=== PATIENT | female | born 1985 | race American Indian/Alaskan Native ===

== ENCOUNTER 2017-04-16 17:13 | Emergency (ER) | payer MEDICAID ==
[2017-04-16 18:11] LABS: Basophils % (Auto) 0.5 % (0.0-1.8); Eosinophils % (Auto) 1.6 % (0.0-4.3); Hematocrit 35.1 % (30.3-42.9); Hemoglobin 11.6 gm/dl (10.1-14.3); Mean Corpuscular HGB Conc 33 % (30-34); Mean Corpuscular Hemoglobin 30 pg (28-32); Mean Corpuscular Volume 89 fl (79-97); Platelet Count 153 K/mm3 (140-440); Red Blood Count 3.93 M/mm3 (3.65-5.03); Red Cell Distribution Width 14.8 % (13.2-15.2)
[2017-04-16 18:28] LABS: Anion Gap 16 mmol/L; Blood Urea Nitrogen 9 mg/dL (7-17); Calcium 8.4 mg/dL (8.4-10.2); Carbon Dioxide 21 mmol/L (22-30); Chloride 101.2 mmol/L (98-107); Glucose 82 mg/dL (65-100); Potassium 3.5 mmol/L (3.6-5.0); Sodium 135 mmol/L (137-145)
--- NOTE | 2017-04-16 18:43 | Emergency Department Report ---
Chief Complaint: Nausea/Vomiting/Diarrhea Stated Complaint: NAUSEA AND VOMITING - HPI History of Present Illness: 31-year-old female 9 weeks by LMP presents with complaint of lower abdominal pain and nausea - ROS Review of Systems: Lower abdominal pain and nausea 2 days - Exam Vital Signs: Vital Signs 04/16/17 17:29 Temperature 98.8 F Pulse Rate 77 Respiratory 18 Rate Blood Pressure 110/51 O2 Sat by Pulse 100 Oximetry Physical Exam: Positive suprapubic pain, patient awake alert and oriented 3, speaking in full sentences MSE screening note: Focused history and physical exam performed. Due to findings the following was ordered: Screening Assessment/Plan/Differential Dx: Abdominal pain during , possible hyperemesis gravidarum 1- This initial assessment/diagnostic orders/clinical plan/ treatment(s) is/are subject to change based on pt's health status, clinical progression and re- assessment by fellow clinical providers in the ED. Further treatment and workup at subsequent clinical provers discretion. Patient/guardians urged not to elope from ED as their condition may be serious if not clinically assessed and managed. 2-labs, UA, ultrasound ED Medical Decision Making - Lab Data Result diagrams: 04/16/17 17:46 04/16/17 17:47 ED Disposition for MSE Condition: Stable Referrals: PRIMARY CARE, [Primary Care Provider] - 3-5 Days
[2017-04-16 19:50] LABS: Bacteria,Urine 1+ /HPF (Negative); Bilirubin,Urine NEG (Negative); Blood,Urine NEG (Negative); Ketones,Urine NEG (Negative); Leukocyte Esterase,Urine NEG (Negative); Mucus,Urine FEW /HPF; Nitrite,Urine NEG (Negative); Urobilinogen,Urine < 2.0 mg/dL (<2.0)
--- NOTE | 2017-04-16 20:08 | Ultrasound Report ---
FINAL REPORT EXAM: US OB \T\lt; = 14 WEEKS FETUS HISTORY: 9 weeks preg w/ abd pain . Hyperemesis with pelvic pain and cramping. Beta serum HCG quantitation 34,854. LMP 02/07/2017 corresponds to an estimated age is 9 weeks 5 days and EDC 11/14/2017 TECHNIQUE: Ultrasound of the pelvis using transabdominal and transvaginal imaging PRIORS: None. FINDINGS: Uterus: Uterus is enlarged in size and normal and homogeneous in echogenicity without focal fibroid formation. The uterus measures 10.3 x 7.6 x 8.3 cm in size. There is a single early viable intrauterine gestation noted. Intrauterine gestation: There is a single intrauterine gestation identified with both a pole and yolk sac. heart rate is monitored at 182 BPM using M-mode doppler. [place]-rump length measurement of 3.7 cm corresponds to estimated age 10 weeks 4 days with EDC 11/08/2017. Ovaries: Both ovaries appear normal in size and echogenicity with normal blood flow bilaterally. The right ovary measures 2.8 x 1.5 x 2.3 cm on the left ovary measures 2.2 x 1.4 x 1.3 cm in size. Other: There is no evidence for solid adnexal mass is seen. There is no free fluid in the cul-de-sac. IMPRESSION: Single intrauterine viable with an approximate age of 10 weeks 4 days.
--- NOTE | 2017-04-16 20:10 | Ultrasound Report ---
FINAL REPORT EXAM: US OB TRANSVAGINAL HISTORY: 9 weeks preg w/ abd pain . Hyperemesis with pelvic pain and cramping. Beta serum HCG quantitation 34,854. LMP 02/07/2017 corresponds to an estimated age is 9 weeks 5 days and EDC 11/14/2017 TECHNIQUE: Ultrasound of the pelvis using transabdominal and transvaginal imaging PRIORS: None. FINDINGS: Uterus: Uterus is enlarged in size and normal and homogeneous in echogenicity without focal fibroid formation. The uterus measures 10.3 x 7.6 x 8.3 cm in size. There is a single early viable intrauterine gestation noted. Intrauterine gestation: There is a single intrauterine gestation identified with both a pole and yolk sac. heart rate is monitored at 182 BPM using M-mode doppler. [place]-rump length measurement of 3.7 cm corresponds to estimated age 10 weeks 4 days with EDC 11/08/2017. Ovaries: Both ovaries appear normal in size and echogenicity with normal blood flow bilaterally. The right ovary measures 2.8 x 1.5 x 2.3 cm on the left ovary measures 2.2 x 1.4 x 1.3 cm in size. Other: There is no evidence for solid adnexal mass is seen. There is no free fluid in the cul-de-sac. IMPRESSION: Single intrauterine viable with an approximate age of 10 weeks 4 days.
[2017-04-16] MEDS ORDERED: REGLAN IV ONE (21:31)
[2017-04-16] MEDS ORDERED: LACTATED RINGERS 1,000 ML IV ONE (21:31)
--- NOTE | 2017-04-16 21:39 | Emergency Department Report ---
ED N/V/D HPI - General Chief complaint: Nausea/Vomiting/Diarrhea Stated complaint: NAUSEA AND VOMITING Time Seen by Provider: 04/16/17 21:26 Source: patient Mode of arrival: Ambulatory Limitations: No Limitations - History of Present Illness Initial comments: This is a 31-year-old female nontoxic, well nourished in appearance, no acute signs of distress presents to the ED complaining of nausea vomiting 2 days. Patient states she is currently 9 weeks and is diagnosed by her VOCATIONAL AIDE. They stated on 04/05 2014 patient had a normal physical exam her OB/ [employer] and was prescribed a nausea medication but patient stated she did not go fill it. Patient denies any dizziness, headache, chest pain, shortness of breath, fever, chills, abdominal pain, pelvic pain, dysuria, polyuria, frequency , hematuria, vaginal bleeding. They stated she has allergies to penicillin. Denies Past medical history. MD complaint: nausea, vomiting -: Gradual, days(s) (2) Description of Vomiting: food contents Associated Abdominal Pain: No Radiation: none Associated Symptoms: denies other symptoms. denies: myalgias, chest pain, cough , diaphoresis, fever/chills, headaches, loss of appetite, malaise, nausea/ vomiting, rash, dysuria, shortness of breath, syncope, weakness - Related Data Previous Rx's Medication Instructions Recorded Last Taken Type Doxylamine/Pyridoxine HCl 1 each PO DAILY #60 tablet. 04/16/17 Unknown Rx [Radha Garcia 10-10 mg Tablet] Allergies Allergy/AdvReac Type Severity Reaction Status Date / Time Penicillins Allergy Nausea Verified 04/16/17 17:29 ED Review of Systems ROS: Stated complaint: NAUSEA AND VOMITING Other details as noted in HPI Constitutional: denies: chills, fever Eyes: denies: eye pain, eye discharge, vision change ENT: denies: ear pain, throat pain Respiratory: denies: cough, shortness of breath, wheezing Cardiovascular: denies: chest pain, palpitations Endocrine: no symptoms reported Gastrointestinal: denies: abdominal pain, nausea, diarrhea Genitourinary: denies: urgency, dysuria, discharge Musculoskeletal: denies: back pain, joint swelling, arthralgia Skin: denies: rash, lesions Neurological: denies: headache, weakness, paresthesias Psychiatric: denies: anxiety, depression Hematological/Lymphatic: denies: easy bleeding, easy bruising ED Past Medical Hx - Past Medical History Previous Medical History?: No - Surgical History Past Surgical History?: No - Social History Smoking Status: Never Smoker Substance Use Type: None - Medications Home Medications: Home Medications Medication Instructions Recorded Confirmed Last Taken Type Doxylamine/Pyridoxine HCl 1 each PO DAILY #60 tablet. 04/16/17 Unknown Rx [Radha Garcia 10-10 mg Tablet] ED Physical Exam - General Limitations: No Limitations General appearance: alert, in no apparent distress - Head Head exam: Present: atraumatic, normocephalic, normal inspection - Eye Eye exam: Present: normal appearance, PERRL, EOMI. Absent: scleral icterus, conjunctival injection, nystagmus, periorbital swelling, periorbital tenderness Pupils: Present: normal accommodation - ENT ENT exam: Present: normal exam, normal orophraynx, mucous membranes moist, TM's normal bilaterally, normal external ear exam - Neck Neck exam: Present: normal inspection, full ROM. Absent: tenderness, meningismus, lymphadenopathy, thyromegaly - Respiratory Respiratory exam: Present: normal lung sounds bilaterally. Absent: respiratory distress, wheezes, rales, rhonchi, stridor, chest wall tenderness, accessory muscle use, decreased breath sounds, prolonged expiratory - Cardiovascular Cardiovascular Exam: Present: regular rate, normal rhythm, normal heart sounds. Absent: bradycardia, tachycardia, irregular rhythm, systolic murmur, diastolic murmur, rubs, gallop - GI/Abdominal GI/Abdominal exam: Present: soft, normal bowel sounds. Absent: distended, tenderness, guarding, rebound, rigid, diminished bowel sounds - Rectal Rectal exam: Present: deferred - Extremities Exam Extremities exam: Present: normal inspection, full ROM, normal capillary refill. Absent: tenderness, pedal edema, joint swelling, calf tenderness - Back Exam Back exam: Present: normal inspection, full ROM. Absent: tenderness, CVA tenderness (R), CVA tenderness (L), muscle spasm, paraspinal tenderness, vertebral tenderness, rash noted - Neurological Exam Neurological exam: Present: alert, oriented X3, CN II-XII intact, normal gait, reflexes normal - Psychiatric Psychiatric exam: Present: normal affect, normal mood - Skin Skin exam: Present: warm, dry, intact, normal color. Absent: rash ED Course Vital Signs 04/16/17 17:29 Temperature 98.8 F Pulse Rate 77 Respiratory 18 Rate Blood Pressure 110/51 O2 Sat by Pulse 100 Oximetry - Reevaluation(s) Reevaluation #1: 04/16/17 21:38 Patient is speaking in full sentences with no signs of distress noted. ED Medical Decision Making - Lab Data Result diagrams: 04/16/17 17:46 04/16/17 17:47 - Medical Decision Making This is a 31-year-old female that presents with nausea vomiting 2 days. CBC, BMP, UA has been obtained. There is slight dehydration upon laboratory exam. Patient received lactated Ringer's as well as Reglan in the ED and patient stated nausea and vomiting has subsided. The by mouth challenge has been performed and patient tolerated well with no signs of any nausea vomiting. Patient was instructed to follow-up with her VOCATIONAL AIDE in 3-5 days or if symptoms worsen or continue return to emergency room as soon as possible. Patient received doxylamine and pyridoxinem at discharge. Patient also instructed to increase hydration with electrolytes. Transvaginal and OB ultrasounds did obtain an dictated by radiologist with impression of single intrauterine viable with an approximate age of 10 weeks 4 days. Critical care attestation.: If time is entered above; I have spent that time in minutes in the direct care of this critically ill patient, excluding procedure time. ED Disposition Clinical Impression: Nausea/vomiting in Qualifiers: Weeks of gestation: 11 weeks Qualified Code(s): Z3A.11 - 11 weeks gestation of Disposition: DC-01 TO HOME OR SELFCARE Is pt being admited?: No Does the pt Need Aspirin: No Condition: Stable Instructions: Acute Nausea and Vomiting (ED), Electrolyte Supplement (By mouth) , (ED) Additional Instructions: Follow-up with the VOCATIONAL AIDE in 3-5 days or if symptoms worsen and continue return to emergency room as soon as possible. Keep Diclectin as directed: Initial: Two tablets at bedtime on day 1 and 2; if symptoms persist, take 1 tablet in morning and 2 tablets at bedtime on day 3; if symptoms persist, may increase to 1 tablet in morning, 1 tablet mid-afternoon , and 2 tablets at bedtime on day 4 (maximum: doxylamine 40 mg/pyridoxine 40 mg (4 tablets) per day). Prescriptions: Doxylamine/Pyridoxine HCl [Radha Garcia 10-10 mg Tablet] 1 each PO DAILY #60 tablet. Referrals: PRIMARY CARE, [Primary Care Provider] - 3-5 Days FARHAN SRINIVASAN MD [Staff Physician] - 3-5 Days [facility] [Outside] - 3-5 Days [facility] [Outside] - 3-5 Days Forms: Work/School Release Form(ED)
[2017-04-17 00:03] VITALS: BP 98/55
== END 2017-04-17 00:34 | disposition home or self-care (01) ==
LOC: ED 17:13
DX: O21.9 Vomiting of pregnancy, unspecified (principal); Z3A.11 11 weeks gestation of pregnancy; Z88.0 Allergy status to penicillin
CPT/HCPCS: 36415; 76801; 76817; 80048; 81001; 84702; 85025; 87086; 96361; 96374; 99284; J2765; J7120

== ENCOUNTER 2017-10-25 08:36 | Outpatient (CLI) | payer OTHER ==
[2017-10-25 09:12] VITALS: BP 109/53
== END 2017-10-25 09:47 | disposition home or self-care (01) ==
LOC: TRG 08:36
PROVIDERS: ATTEND Obstetrics & Gynecology
DX: O47.1 False labor at or after 37 completed weeks of gestation (principal); Z3A.37 37 weeks gestation of pregnancy
CPT/HCPCS: 59025

== ENCOUNTER 2017-11-06 03:17 | Inpatient (IN) | payer OTHER ==
[2017-11-06] MEDS ORDERED: SUBLIMAZE IV PRN (03:31)
[2017-11-06] MEDS ORDERED: NARCAN 0.4 MG/1 ML IV PRN (03:31)
[2017-11-06] MEDS ORDERED: ePHEDrine SULFATE IV PRN (03:31)
[2017-11-06] MEDS ORDERED: XYLOCAINE 2% INFILTRATI ONE (03:31)
[2017-11-06] MEDS ORDERED: STADOL IV PRN (03:31)
[2017-11-06] MEDS ORDERED: BRETHINE SUB-Q PRN (03:31)
[2017-11-06] MEDS ORDERED: BRETHINE IVP PRN (03:31)
[2017-11-06] MEDS ORDERED: MINERAL OIL ONE (03:41)
[2017-11-06] MEDS ORDERED: PITOCin/NS 30 UNIT/500ML 30 UNITS/500 ML BAG IV SCH (04:00)
[2017-11-06] MEDS ORDERED: LACTATED RINGERS 1,000 ML IV SCH (04:00)
[2017-11-06] MEDS ORDERED: POLYCILLIN/NS 2 GM/100 ML 2 GM/100 ML BAG IV SCH (04:00)
[2017-11-06] MEDS ORDERED: PITOCin/NS 20 UNIT/1000ML DRIP 20 UNITS/1,000 ML BAG IV SCH (04:00)
[2017-11-06] MEDS ORDERED: TUCKS PAD TP PRN (04:11)
[2017-11-06] MEDS ORDERED: BENADRYL PO PRN (04:11)
--- NOTE | 2017-11-06 04:18 | History and Physical Report ---
History of Present Illness Date of examination: 11/06/17 Date of admission: 11/06/17 03:27 Chief complaint: Intense Labor Pains History of present illness: Early entry to care; 2nd trimester complicated Constipation and Heartburn. Third trimester complicated by size greater than dates. Past History Past Medical History: asthma Past Surgical History: other (arm and leg Sx (1999)) PROCUREMENT PROFESSIONAL History: herpes Family/Genetic History: diabetes, cancer Social history: no significant social history, - Obstetrical History Expected Date of Delivery: 11/14/17 Actual Gestation: 38 Week(s) 6 Day(s) : 5 Para: 1 Hx # Term Pregnancies: 1 Spontaneous Abortions: 1 Induced : 2 Number of Living Children: 1 #1 Gender: Male year: 15 Birthweight: 3.26 kg Method of Delivery: Vaginal Gestational age at delivery: 40 Complications: none Medications and Allergies Allergies Allergy/AdvReac Type Severity Reaction Status Date / Time Penicillins Allergy Nausea Verified 04/16/17 17:29 Home Medications Medication Instructions Recorded Confirmed Last Taken Type Doxylamine Succinate/Vit B6 1 each PO DAILY #60 tablet. 04/16/17 Unknown Rx [Radha Garcia 10-10 mg Tablet] Active Meds: Active Medications Acetaminophen/Hydrocodone Bitart ([place] 5/325) 2 each PO Q6H PRN PRN Reason: Pain, Moderate (4-6) Butorphanol Tartrate (Stadol) 2 mg IV Q2H PRN PRN Reason: Pain , Severe (7-10) Diphenhydramine HCl (Benadryl) 25 mg PO Q6H PRN PRN Reason: Itching Ephedrine Sulfate (Ephedrine Sulfate) 10 mg IV Q2M PRN PRN Reason: Hypotension Fentanyl (Sublimaze) 100 mcg IV Q2H PRN PRN Reason: Labor Pain Lactated Ringer's (Lactated Ringers) 1,000 mls @ 125 mls/hr IV DIRECT LAYLA Oxytocin/Sodium Chloride (Pitocin/Ns 20 Unit/1000ml Drip) 20 units in 1,000 mls @ 125 mls/hr IV DIRECT LAYLA Oxytocin/Sodium Chloride (Pitocin/Ns 30 Unit/500ml) 30 units in 500 mls @ 2 mls /hr IV TITR LAYLA; Protocol Ampicillin Sodium (Polycillin/Ns 2 Gm/100 Ml) 2 gm in 100 mls @ 100 mls/hr IV ONCE LAYLA; Protocol Ampicillin Sodium (Ampicillin/Ns 1 Gm/50 Ml) 1 gm in 50 mls @ 100 mls/hr IV Q4H LAYLA; Protocol Ibuprofen (Motrin) 600 mg PO Q6H LAYLA Mineral Oil (Mineral Oil) 30 ml PO QHS PRN PRN Reason: Constipation Multi-Ingredient Ointment (Lansinoh) 1 applic TP PRN PRN PRN Reason: Sore Nipples Multivitamins/Iron/Calcium ( Vitamin) 1 each PO QDAY LAYLA Naloxone HCl (Narcan 0.4 Mg/1 Ml) 0.1 mg IV Q2MIN PRN PRN Reason: Res Rate </= 8 or 02 SAT < 92% Sodium Chloride (Sodium Chloride Flush Syringe 10 Ml) 10 ml IV PRN NR Terbutaline Sulfate (Brethine) 0.25 mg SUB-Q ONCE PRN PRN Reason: Hyperstimulation/Hypertonicity Terbutaline Sulfate (Brethine) 0.25 mg IVP ONCE PRN PRN Reason: Hyperstimulation/Hypertonicity [place]/Glycerin (Tucks Pad) 1 each TP PRN PRN PRN Reason: Hemorrhoid/cleansing/soothing Review of Systems All systems: negative - Physical Exam Breasts: Positive: normal Cardiovascular: Regular rate Lungs: Positive: Clear to auscultation, Normal air movement Abdomen: Positive: normal appearance, normal bowel sounds Genitourinary (Female): Positive: normal external genitalia, normal perenium Vagina: Positive: normal moisture Uterus: Positive: enlarged Anus/Rectum: Positive: normal perianal skin Extremities: Positive: normal - Obstetrical FHR: category 1 Uterine Contraction Monitor Mode: External Cervical Dilatation: 10 Cervical Effacement Percentage: 100 station: +2 Uterine Contraction Pattern: Regular Uterine Tone Measurement Phase: Resting Uterine Contraction Intensity: Strong/Firm Results All other labs normal. Assessment and Plan A: IUP @ 38 6/7 Weeks Category I Tracing Active Labor GBS Positive P: Admit to L&D per Routine Orders GBS Prophylaxis Anticipate
--- NOTE | 2017-11-06 04:31 | Procedure Note ---
OB Delivery Note - Delivery Date of Delivery: 11/06/17 (0343) Surgeon: GRETEL MINA Estimated blood loss: 200cc - Vaginal Delivery presentation: vertex Delivery position: OA Intrapartum events: precipitous labor- <3hr Delivery induction: none Delivery augmentation: rupture of membranes (Clear fluid) Delivery monitor: external FHT, external uterine Route of delivery: Delivery placenta: spontaneous Delivery cord: 3 umbilical vessels Episiotomy: none Delivery laceration: 1st degree Delivery repair: vicryl Anesthesia: local Delivery comments: of a live 8'10 male infant over a first degree perineal laceration without pain control with Apgars of 8 and 9 at 0343 on 11/06/2017. directly to maternal abd/chest, skin to skin contact. Perineal laceration repaired with 2- [address]-1 under local 2% Lidocaine. Spontaneous delivery of placenta complete and intact with Alexander side presenting at 0348. 20u of Pitocin given IM after placental delivery. Fundus is firm and midline located 4 below the U. Lochia is scant. Delayed cord clamping and cutting. Cord blood collected. Placenta discarded. - Infant A at 1 minute: 8 at 5 minutes: 9 Infant Gender: Male (8'10)
[2017-11-06] MEDS ORDERED: SODIUM CHLORIDE FLUSH SYRINGE 10 ML IV NR (05:00)
[2017-11-06 05:53] LABS: Hematocrit 38.3 % (30.3-42.9); Hemoglobin 13.1 gm/dl (10.1-14.3); Mean Corpuscular HGB Conc 34 % (30-34); Mean Corpuscular Hemoglobin 32 pg (28-32); Mean Corpuscular Volume 92 fl (79-97); Platelet Count 104 K/mm3 (140-440); Red Blood Count 4.16 M/mm3 (3.65-5.03); Red Cell Distribution Width 15.1 % (13.2-15.2)
[2017-11-06] MEDS: NORCO 5/325 PO PRN (06:15)
[2017-11-06] MEDS ORDERED: AMPICILLIN/NS 1 GM/50 ML 1 GM/50 ML BAG IV SCH (08:00)
[2017-11-06] MEDS: MOTRIN PO SCH ×2 (10:11→17:52)
[2017-11-06] MEDS: LANSINOH TP PRN (10:11)
[2017-11-06] MEDS: PRENATAL VITAMIN PO SCH (10:11)
[2017-11-06 19:16] LABS: Hematocrit 37.4 % (30.3-42.9); Hemoglobin 12.8 gm/dl (10.1-14.3)
[2017-11-06] MEDS ORDERED: MINERAL OIL PO PRN (22:00)
[2017-11-07] MEDS: NORCO 5/325 PO PRN (02:27)
[2017-11-07] MEDS: MOTRIN PO SCH ×5 (02:27→18:00)
--- NOTE | 2017-11-07 10:27 | Progress Note ---
Assessment and Plan A: PPD#1 s/p Stable GBS positive, untreated P: Routine PP care Discharge home in am Subjective - Subjective Date of service: 11/07/17 Principal diagnosis: Patient reports: appetite normal, voiding normally, pain well controlled, ambulating normally : doing well, bottle feeding Objective - Vital Signs Latest vital signs: Vital Signs Temp Pulse Resp BP BP Pulse Ox 11/07/17 09:33 98.3 F 63 18 92/56 11/07/17 08:38 66 96 11/07/17 00:33 98.2 F 82 18 96/50 98 11/06/17 20:23 98.8 F 81 16 98/49 97 11/06/17 16:26 98.5 F 82 18 96/64 96 Intake and Output 11/06/17 11/07/17 11/07/17 23:59 07:59 15:59 Intake Total 360 Balance 360 Intake: Oral 360 Other: Total, Intake Amount 360 # Voids Void 1 1 - Exam Breasts: Present: normal Cardiovascular: Present: Regular rate, Normal S1, Normal S2 Lungs: Present: Clear to auscultation, Normal air movement Abdomen: Present: normal appearance, soft, normal bowel sounds Vulva: both: normal, laceration/episiotomy (1st degree, well approximated) Uterus: Present: firm, fundal height below umbilicus (-1) Extremities: Present: normal Deep Tendon Reflex Grade: Normal +2
--- NOTE | 2017-11-07 10:33 | Discharge Summary ---
Providers - Providers Date of Admission: 11/06/17 03:27 Date of discharge: 11/08/17 Attending physician: DARRION JEROME MD Primary care physician: DARRION JEROME MD Hospitalization Reason for admission: active labor, IUP at term Delivery: Procedure details: See H&P and delivery note Episiotomy: none Laceration: 1st degree Other procedures: none complications: none Discharge diagnosis: IUP at term delivered Condition at discharge: Good Disposition: DC-01 TO HOME OR SELFCARE Plan - Provider Discharge Summary Activity: routine, no sex for 6 weeks, no heavy lifting 4 weeks, no strenuous exercise Diet: routine Instructions: routine Additional instructions: [] Smoking cessation referral if applicable(refer to patient education folder for contact #) [] Refer to [facility] Booklet Call your doctor immediately for: * Fever > 100.5 * Heavy vaginal bleeding ( >1 pad per hour) * Severe persistent headache * Shortness of breath * Reddened, hot, painful area to leg or breast * Drainage or odor from incision. * Keep incision clean and dry at all times and follow doctor's instructions regarding bathing/showering - Follow up plan Follow up: DARRION JEROME MD [Primary Care Provider] - 6 Weeks
[2017-11-08] MEDS: NORCO 5/325 PO PRN (00:15)
[2017-11-08] MEDS: PRENATAL VITAMIN PO SCH (10:45)
[2017-11-08] MEDS: LANSINOH TP PRN ×2 (12:00→13:20)
[2017-11-08 12:56] VITALS: BP 108/68
== END 2017-11-08 13:15 | disposition home or self-care (01) | DRG 774 ==
LOC: TRG 03:17 → LD 03:27 → OB 08:37
PROVIDERS: ADMIT Obstetrics & Gynecology; ATTEND Obstetrics & Gynecology
PROC: 10E0XZZ Delivery of Products of Conception, External Approach (ICD-10-PCS; principal; 2017-11-06)
PROC: 0HQ9XZZ Repair Perineum Skin, External Approach (ICD-10-PCS; 2017-11-06)
DX: O99.824 Streptococcus B carrier state complicating childbirth (principal); O98.32 Other infections with a predominantly sexual mode of transmission complicating childbirth; O99.52 Diseases of the respiratory system complicating childbirth; Z3A.38 38 weeks gestation of pregnancy; Z37.0 Single live birth; O62.3 Precipitate labor; O70.0 First degree perineal laceration during delivery; J45.909 Unspecified asthma, uncomplicated; Z83.3 Family history of diabetes mellitus; Z80.9 Family history of malignant neoplasm, unspecified; A60.00 Herpesviral infection of urogenital system, unspecified
CPT/HCPCS: 36415; 85014; 85018; 85027; 86592; 86850; 86900; 86901; 99211; A6250; G0463; J2590; J7120